=== PATIENT | female | born 1950 | race Caucasian/White ===

== ENCOUNTER → 2016-09-01 | Outpatient (CLI) | payer OTHER ==
[~2016-09-01] MED LIST: IOPAMIDOL (ISOVUE-300) 100 ML BTL ONE
[2016-09-01 15:33] LABS: CREATININE 0.8 mg/dL (0.6-1.0); GLOMERULAR FILTRATION RATE > 60
== END ==
LOC: FIMAGING 14:28
PROVIDERS: ATTEND Internal Medicine
DX: N20.2 Calculus of kidney with calculus of ureter (principal); Z93.2 Ileostomy status
CPT/HCPCS: 74177; Q9967

== ENCOUNTER → 2016-09-09 | Outpatient (CLI) | payer OTHER | LOC: FIMAGING 16:47 | PROVIDERS: ATTEND Specialist | DX: N28.9 Disorder of kidney and ureter, unspecified (principal) ==

== ENCOUNTER → 2017-06-08 | Outpatient (CLI) | payer OTHER | LOC: BMCIMAGING 14:01 | PROVIDERS: ATTEND Internal Medicine | DX: Z12.31 Encounter for screening mammogram for malignant neoplasm of breast (principal); Z13.820 Encounter for screening for osteoporosis; M85.89 Other specified disorders of bone density and structure, multiple sites; E07.9 Disorder of thyroid, unspecified; Z79.899 Other long term (current) drug therapy; Z78.0 Asymptomatic menopausal state; Z80.3 Family history of malignant neoplasm of breast ==

== ENCOUNTER → 2018-06-09 | Outpatient (CLI) | payer OTHER | LOC: BMCIMAGING 12:01 | PROVIDERS: ATTEND Internal Medicine | DX: Z12.31 Encounter for screening mammogram for malignant neoplasm of breast (principal); Z80.3 Family history of malignant neoplasm of breast ==

== ENCOUNTER → 2018-06-30 | Outpatient (CLI) | payer OTHER | LOC: BMCIMAGING 10:37 | PROVIDERS: ATTEND Internal Medicine | DX: R92.8 Other abnormal and inconclusive findings on diagnostic imaging of breast (principal) ==

== ENCOUNTER 2018-07-20 14:21 | Observation (INO) | payer OTHER ==
--- NOTE | 2018-07-20 14:55 | EDPHY ---
H & P Stated Complaint: irregular HR Time Seen by Provider: 07/20/18 14:55 HPI/ROS: CHIEF COMPLAINT: Tachycardia HISTORY OF PRESENT ILLNESS: The patient presents the ED with complaints of tachycardia for the past several days. The patient does have a history of paroxysmal atrial fibrillation. She takes 120 mg of diltiazem twice a day. The patient is also on Xarelto. She reported that she did eat and drink earlier today. The patient denies any chest pain or shortness of breath. The patient does report some anxiety secondary to her recent blindness. The patient has remote history of a gastric perforation leading to sepsis and intra- abdominal surgery. The patient was seen by her primary care provider yesterday noted to be in atrial fibrillation. She tempted to see her regular certified nursing assistant Dr. Yousif today but was unable to be seen in the office. REVIEW OF SYSTEMS: A comprehensive 10 point review of systems is otherwise negative aside from elements mentioned in the history of present illness. Source: Patient Exam Limitations: No limitations - Personal History Current Tetanus/Diphtheria Vaccine: Yes Current Tetanus Diphtheria and Acellular Pertussis (TDAP): Yes - Medical/Surgical History Hx Asthma: No Hx Chronic Respiratory Disease: No Hx Diabetes: No Hx Cardiac Disease: Yes Hx Renal Disease: No Hx Cirrhosis: No Hx Alcoholism: No Hx HIV/AIDS: No Hx Splenectomy or Spleen Trauma: No Other PMH: A-fib. perforated bowel surgery. parathyroid surgery. eye surgery , cornea transplant. 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 on lovenox - Social History Smoking Status: Never smoked - Physical Exam Exam: General Appearance: Alert, no distress Eyes: Pupils equal and round no pallor or injection ENT, Mouth: Mucous membranes moist Respiratory: There are no retractions, lungs are clear to auscultation Cardiovascular: Tachycardic, irregular Gastrointestinal: Abdomen is soft and nontender, no masses, bowel sounds normal Neurological: A&O, normal motor function, normal sensory exam, normal cranial nerves Skin: Warm and dry, no rashes Musculoskeletal: Neck is supple nontender Extremities: symmetrical, full range of motion Constitutional: Initial Vital Signs Temperature (C) 37.1 C 07/20/18 14:38 Heart Rate 67 07/20/18 14:38 Respiratory Rate 16 07/20/18 14:38 Blood Pressure 154/116 H 07/20/18 14:38 O2 Sat (%) 93 04/09/19 14:38 O2 Delivery Mode Room Air Allergies/Adverse Reactions: metoprolol succinate [From Toprol XL] Allergy (Verified 07/20/18 14:34) Home Medications: Medication Instructions Recorded Diltiazem HCl [Cartia Xt] 120 mg PO DAILY 01/17/15 Loperamide HCl [Loperamide] 2 mg PO PRN PRN 01/17/15 Ondansetron Odt [Zofran Odt 4 mg 4 mg PO DAILY PRN 01/17/15 (*)] Tobramycin/Dexamethasone [Tobradex 1 applic LEFTEYE BID 01/17/15 Eye Ointment] Tobramycin/Dexamethasone [Tobradex 1 applic RTEYE DAILY 01/17/15 Eye Ointment] Levothyroxine [Synthroid 88 mcg 88 mcg PO DAILY06 #30 tab 01/27/15 (*)] Benadryl 07/20/18 FLUoxetine HCL 07/20/18 Lorazepam 07/20/18 Melatonin 07/20/18 Miralax 17 gm (*) 07/20/18 Xarelto 07/20/18 Medical Decision Making - Diagnostics EKG Interpretation: EKG: Complete interpretation has been separately recorded in the [facility] archive. Summary impression: Atrial flutter, rate 143, nonspecific ST T wave changes noted ED Course/Re-evaluation: Patient presents the ED with atrial flutter with rapid ventricular response. The patient has a history of this. She had an IV established he was placed on a equipment monitor phototypesetting. The patient received IV diltiazem. She did have improvement of her underlying atrial rate and went to flutter with 3:1 conduction. The patient will be admitted to the hospital in a setting of her ongoing symptoms. She is having fatigue and mild dyspnea. Consultation was made with Dr. Jolley from the hospitalist service who will admit the patient. I have paged the cardiology service at 4:00 p.m.. Differential Diagnosis: Differential diagnosis considered includes atrial fibrillation, atrial flutter, SVT, myocardial infarction - Data Points Laboratory Results: Laboratory Results 07/20/18 15:05 07/20/18 15:05 07/20/18 07/20/18 07/20/18 15:05 15: 15: WBC 8.39 10^3/uL 10^3/uL (3.80-9.50) RBC 5.32 10^6/uL 10^6/uL (4.18-5.33) Hgb 16.6 g/dL H g/dL (12.6-16.3) Hct 48.5 % H % (38.0-47.0) MCV 91.2 fL fL (81.5-99.8) MCH 31.2 pg pg (27.9-34.1) MCHC 34.2 g/dL g/dL (32.4-36.7) RDW 14.3 % % (11.5-15.2) Plt Count 207 10^3/uL 10^3/uL (150-400) MPV 9.8 fL fL (8.7-11.7) Neut % (Auto) 72.8 % % (39.3-74.2) Lymph % (Auto) 18.8 % % (15.0-45.0) [place] % (Auto) 6.9 % % (4.5-13.0) Eos % (Auto) 0.8 % % (0.6-7.6) Baso % (Auto) 0.5 % % (0.3-1.7) Nucleat RBC Rel Count 0.0 % % (0.0-0.2) Absolute Neuts (auto) 6.10 10^3/uL 10^3/uL (1.70-6.50) Absolute Lymphs (auto) 1.58 10^3/uL 10^3/uL (1.00-3.00) Absolute Monos (auto) 0.58 10^3/uL 10^3/uL (0.30-0.80) Absolute Eos (auto) 0.07 10^3/uL 10^3/uL (0.03-0.40) Absolute Basos (auto) 0.04 10^3/uL 10^3/uL (0.02-0.10) Absolute Nucleated RBC 0.00 10^3/uL 10^3/uL (0-0.01) Immature Gran % 0.2 % % (0.0-1.1) Immature Gran # 0.02 10^3/uL 10^3/uL (0.00-0.10) PT 17.0 SEC H SEC (12.0-15.0) INR 1.45 H (0.83-1.16) APTT 32.6 SEC SEC (23.0-38.0) Sodium 141 mEq/L mEq/L (135-145) Potassium 4.5 mEq/L mEq/L (3.5-5.2) Chloride 109 mEq/L mEq/L (97-110) Carbon Dioxide 21 mEq/l L mEq/l (22-31) Anion Gap 11 mEq/L mEq/L (6-14) BUN 17 mg/dL mg/dL (7-23) Creatinine 0.7 mg/dL mg/dL (0.6-1.0) Estimated GFR > 60 Glucose 98 mg/dL mg/dL (70-100) Calcium 9.5 mg/dL mg/dL (8.5-10.4) Medications Given: Discontinued Medications Diltiazem HCl (Cardizem 25 Mg/5 Ml Vial) 20 mg IVP EDNOW ONE Stop: 07/20/18 15:04 Last Admin: 07/20/18 15:18 Dose: 20 mg Sodium Chloride (Ns) 1,000 mls @ 0 mls/hr IV EDNOW ONE; Wide Open PRN Reason: Protocol Stop: 07/20/18 15:04 Last Admin: 07/20/18 15:17 Dose: 1,000 mls Departure - Departure Disposition: [facility] Inpatient Acute Clinical Impression: Atrial flutter Condition: Fair
[2018-07-20] MEDS ORDERED: NS 1,000 ML IV ONE (15:03)
[2018-07-20] MEDS ORDERED: DILTIAZEM 25 MG/5 ML VIAL IVP ONE (15:03)
[2018-07-20 15:27] LABS: PLATELET COUNT 207 10^3/uL (150-400)
[2018-07-20 15:36] LABS: INR 1.45 (0.83-1.16)
[2018-07-20] MEDS ORDERED: ONDANSETRON 4 MG/2 ML VIAL IVP PRN (15:39)
[2018-07-20] MEDS ORDERED: ONDANSETRON DISINTEGRATING 4 MG TAB PO PRN (15:39)
[2018-07-20] MEDS ORDERED: ACETAMINOPHEN 325 MG TAB PO PRN (15:39)
--- NOTE | 2018-07-20 15:44 | CPEKG ---
Test Reason : OPEN Blood Pressure : / mmHG Vent. Rate : 143 BPM Atrial Rate : 141 BPM P-R Int : 152 ms QRS Dur : 101 ms QT Int : 378 ms P-R-T Axes : -24 -24 093 degrees QTc Int : 583 ms Sinus tachycardia Inferior infarct, acute (RCA) Prolonged QT interval Probable RV involvement, suggest recording right precordial leads Confirmed by Norman Garcia ([id number]) on 07/20/2018 3:44:03 PM Referred By: Norman Garcia Confirmed By:Norman Garcia
--- NOTE | 2018-07-20 16:02 | PDGENHP ---
History and Physical - Chief Complaint Tachycardia - History of Present Illness Isabel Rivas is a 67 yo F with a PMHx of Paroxysmal A Fib on Xarelto and Diltiazem, blindness, hx of gastric perforation who presents to [facility] for tachycardia. She reports that she has noted a rapid heart rhythm for the past several days. She was seen by her PCP her performed an EKG which showed rapid heart rate per patient. She denies any chest pain, SOB, f/c, d/c, dysuria, edema. History Information - Allergies/Home Medication List Allergies/Adverse Reactions: metoprolol succinate [From Toprol XL] Allergy (Intermediate, Verified 07/20/18 15:56) Home Medications: Diltiazem HCl [Cartia Xt] 120 mg PO BID 01/17/15 [Last Taken 07/20/18 09:00] Ondansetron Odt [Zofran Odt 4 mg (*)] 4 mg PO DAILY PRN 01/17/15 [Last Taken Unknown] Tobramycin/Dexamethasone [Tobradex Eye Ointment] 1 applic EACHEYE HS 01/17/15 [ Last Taken 07/19/18 21:00] Acetaminophen [Tylenol ES 500 mg (*)] 500 - 1,000 mg PO BID 07/20/18 [Last Taken 07/20/18 09:00] Bifidobacterium Infantis [Align] 4 mg PO DAILY 07/20/18 [Last Taken 07/19/18 09: 00] Clobetasol 0.05% [Temovate Cream] 1 applic TD DAILY 07/20/18 [Last Taken 09:00] Estrogens,Conjugated [Premarin Vaginal (*)] 1 dakotah VAG SUWE 07/20/18 [Last Taken 07/18/18] FLUoxetine HCL [Fluoxetine HCl] 40 mg PO DAILY 07/20/18 [Last Taken 07/20/18 09: 00] Herbals/Supplements -Info Only 1 ea PO DAILY 07/20/18 [Last Taken 07/16/18] LORazepam [Ativan (*)] 0.5 mg PO DAILY PRN 07/20/18 [Last Taken 07/20/18 09:00] Melatonin [Melatonin 3 MG (*)] 3 mg PO HS 07/20/18 [Last Taken 07/19/18 21:00] Polyethylene Glycol 3350 [Miralax 17 gm (*)] 17 gm PO DAILY 07/20/18 [Last Taken 07/19/18 09:00] Rivaroxaban [Xarelto] 20 mg PO HS 07/20/18 [Last Taken 07/19/18 21:00] diphenhydrAMINE [Benadryl 25 MG (*)] 25 mg PO TID PRN 07/20/18 [Last Taken Unknown] prednisoLONE ACET 1% [Pred Forte 1% (*)] 1 drop RTEYE HS 07/20/18 [Last Taken 21:00] I have personally reviewed and updated: family history, medical history, social history, surgical history - Past Medical History atrial fibrillation Additional medical history: 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 - Surgical History Reports: colectomy Additional surgical history: eye surgery - Family History Positive for: non-pertinent - Social History Smoking Status: Never smoked Review of Systems Review of Systems: ROS: 10pt was reviewed & negative except for what was stated in HPI & below Physical Exam Physical Exam: Temp Pulse Resp BP Pulse Ox 37.1 C 79 16 124/82 H 96 07/20/18 14:38 07/20/18 15:25 07/20/18 15:25 07/20/18 15:25 07/20/18 15:25 Constitutional: no apparent distress Eyes: No PERRL Ears, Nose, Mouth, Throat: moist mucous membranes Cardiovascular: irregularly irregular, No no murmur, rub, or gallop, No JVD, No edema Respiratory: no respiratory distress Gastrointestinal: soft, non-tender abdomen Skin: warm Musculoskeletal: full muscle strength Neurologic: AAOx3 Psychiatric: interacting appropriately Lab Data & Imaging Review 07/20/18 15:05 07/20/18 15:05 WBC 8.39 10^3/uL (3.80-9.50) 07/20/18 15:05 RBC 5.32 10^6/uL (4.18-5.33) 07/20/18 15:05 Hgb 16.6 g/dL (12.6-16.3) H 07/20/18 15:05 Hct 48.5 % (38.0-47.0) H 07/20/18 15:05 MCV 91.2 fL (81.5-99.8) 07/20/18 15:05 MCH 31.2 pg (27.9-34.1) 07/20/18 15:05 MCHC 34.2 g/dL (32.4-36.7) 07/20/18 15:05 RDW 14.3 % (11.5-15.2) 07/20/18 15:05 Plt Count 207 10^3/uL (150-400) 07/20/18 15:05 MPV 9.8 fL (8.7-11.7) 07/20/18 15:05 Neut % (Auto) 72.8 % (39.3-74.2) 07/20/18 15:05 Lymph % (Auto) 18.8 % (15.0-45.0) 07/20/18 15:05 [place] % (Auto) 6.9 % (4.5-13.0) 07/20/18 15:05 Eos % (Auto) 0.8 % (0.6-7.6) 07/20/18 15:05 Baso % (Auto) 0.5 % (0.3-1.7) 07/20/18 15:05 Nucleat RBC Rel Count 0.0 % (0.0-0.2) 07/20/18 15:05 Absolute Neuts (auto) 6.10 10^3/uL (1.70-6.50) 07/20/18 15:05 Absolute Lymphs (auto) 1.58 10^3/uL (1.00-3.00) 07/20/18 15:05 Absolute Monos (auto) 0.58 10^3/uL (0.30-0.80) 07/20/18 15:05 Absolute Eos (auto) 0.07 10^3/uL (0.03-0.40) 07/20/18 15:05 Absolute Basos (auto) 0.04 10^3/uL (0.02-0.10) 07/20/18 15:05 Absolute Nucleated RBC 0.00 10^3/uL (0-0.01) 07/20/18 15:05 Immature Gran % 0.2 % (0.0-1.1) 07/20/18 15:05 Immature Gran # 0.02 10^3/uL (0.00-0.10) 07/20/18 15:05 PT 17.0 SEC (12.0-15.0) H 07/20/18 15:05 INR 1.45 (0.83-1.16) H 07/20/18 15:05 APTT 32.6 SEC (23.0-38.0) 07/20/18 15:05 Sodium 141 mEq/L (135-145) 07/20/18 15:05 Potassium 4.5 mEq/L (3.5-5.2) 07/20/18 15:05 Chloride 109 mEq/L (97-110) 07/20/18 15:05 Carbon Dioxide 21 mEq/l (22-31) L 07/20/18 15:05 Anion Gap 11 mEq/L (6-14) 07/20/18 15:05 BUN 17 mg/dL (7-23) 07/20/18 15:05 Creatinine 0.7 mg/dL (0.6-1.0) 07/20/18 15:05 Estimated GFR > 60 07/20/18 15:05 Glucose 98 mg/dL (70-100) 07/20/18 15:05 Calcium 9.5 mg/dL (8.5-10.4) 07/20/18 15:05 POC Troponin I 0.03 ng/mL (0.00-0.08) 07/20/18 15:18 Assessment & Plan Assessment: Atrial flutter with rapid ventricular rate - Complaining of tachycardia recently, s/p EKG in PCP yesterday - HR 140's on admission, EKG showing A Flutter - Has a hx of Paroxsymal A Fib on Xarelto and Diltiazem - S/p 20 mg IVP Diltiazem in ED with improvement in HR <110, will start diltiazem gtt for continued HR control - Cardiology consulted in ED, discussed with Estrada Kunz, he will arrange for DCCV in the AM - NPO after midnight - Holding home Diltiazem 120 gm PO BID and continue home Xarelto - Monitor on telemetry Hypothyroidism - Continue home synthroid - Will check TSH Anxiety - Continue home Fluoxetine, Ativan Blindness - Continue home eye drops FEN: IVF, NPO pending procedure DVT Ppx: Home Xarelto Code: FULL Dispo: Admit to Observation
[2018-07-20] MEDS ORDERED: DILTIAZEM 25 MG/5 ML VIAL IVP PRN (16:11)
[2018-07-20] MEDS ORDERED: LORazepam 0.5 MG TAB PO PRN (16:13)
[2018-07-20] MEDS ORDERED: DILTIAZEM HCL/D5W 125 ML IV SCH (17:00)
--- NOTE | 2018-07-20 17:52 | GCON ---
[f rep st] CONSULTATION REFERRING PHYSICIAN: Norman Garcia MD SUPERVISING TRANSCRIPTION TYPIST: Dr. Robb Calvillo. INDICATION FOR CARDIOLOGY CONSULTATION: Atrial flutter with rapid ventricular response. HISTORY OF PRESENT ILLNESS: The patient is a pleasant 67-year-old female who is known to our practice. She is followed by Dr. Devan Walker. She has significant past history that includes paroxysmal atrial fibrillation, hypertension, sleep apnea, legally blind. The patient reporting she had been in her normal state of health until approximately 1 month ago, in which she had noted while walking, she becomes significantly short of breath. Denying of any significant chest pain, but does report occasional back pain with these symptoms. She usually states that this dissipates within a few minutes of resting, but finds, overall, that she has been mostly fatigued. She was seen by her PCP today and found that she was in atrial fibrillation. She was sent to the emergency department for further evaluation. Upon arrival, electrocardiogram was done, noting A-flutter with RVR, ventricular rate up to 143 BPM. She was noted to have mild Q-waves in the inferior leads. A troponin level was drawn, which was noted to be at 0.03. She was initially treated with IV diltiazem, which noted a significant improvement in rate, dropping her down to 90 beats per minute after the IV bolus. She reports significant improvement in symptoms. At the time of my examination, she reports no shortness of breath and denies of any chest pain or pressure. She reports no orthopnea, PND, edema , rapid weight gain, lightheadedness, near-syncope, or syncopal events. She reports no symptoms suggestive of TIA or CVA. She reports no recent fevers, chills, or night sweats. She denies of any bleeding issues, she is currently on full anticoagulation on Xarelto. PAST MEDICAL HISTORY: Includes anxiety, depression, fibromyalgia, hypertension , hypothyroidism, QUOC, paroxysmal atrial fibrillation and history of autoimmune disease, which caused blindness. PAST SURGICAL HISTORY: Includes cholecystectomy, corneal transplant, tonsillectomy. 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 Ovarian cyst removal. 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 She is . She has 2 kids and multiple grandchildren who are all alive and well. She denies of any smoking history. She occasionally uses alcohol. Denies any illicit drug use. ALLERGIES: The patient states allergies to metoprolol succinate. HOME MEDICATIONS: Include lorazepam 0.5 mg p.o. daily p.r.n., herbs and supplements, Premarin vaginal, 1 application vaginal Thursday and Thursday; MiraLAX 17 g p.o. daily p.r.n.; Align 4 mg p.o. daily; Tylenol 500 to 1000 mg p.o. twice daily; Benadryl 25 mg p.o. three times daily p.r.n.; melatonin 3 mg p.o. h.s.; temovate cream application daily; prednisone acetate 1% 1 drop to the right eye h.s.; Zofran 4 mg p.o. daily p.r.n.; fluoxetine 40 mg p.o. daily; Tobrex eye ointment 1 application each eye h.s.; Xarelto 20 mg p.o. h.s.; Synthroid 88 mcg p.o. daily; diltiazem 120 mg p.o. b.i.d. REVIEW OF SYSTEMS: A 10-point review of systems done on this patient, all negative except as mentioned above. PHYSICAL EXAMINATION: GENERAL APPEARANCE: Morbidly obese, female. She is alert and orientated to person, place, time and situation. She currently appears to be in no acute distress. VITAL SIGNS: Current vital signs are a blood pressure of 129/98, heart rate of 120 on monitor, atrial flutter; respirations 20, saturating 94% on room air; temperature 36.9 degrees Celsius. HEENT: Head is normocephalic. Lips and tongue are pink and moist with no signs of cyanosis. NECK: Trachea is midline. +2 carotid pulses bilaterally. No auscultated bruits. No jugular vein distention. RESPIRATORY: Lungs are clear to auscultation. No rhonchi, rales, or wheezes. No accessory muscle use. No intercostal muscle retraction noted. CARDIAC: Tachy rate, irregular rhythm, S1, S2. No S3, S4, gallops, rubs, or murmurs noted. ABDOMEN: Soft, nontender. Bowel sounds x4 quadrants. Colostomy left upper lower quadrant. SKIN: [place], warm and dry. No cyanosis, no clubbing, no peripheral edema. VASCULAR: +2 carotids bilaterally, +2 radials bilaterally, + 1 dorsal pedal and posterior tibial pulses bilaterally. LABORATORY STUDIES: Laboratory studies drawn on admission showing WBC of 8.39, hemoglobin of 16.6, hematocrit of 48.5, platelet count of 207. INR of 1.45. Sodium 141, potassium 4.5, chloride 109, CO2 21, BUN 17, creatinine 0.7, glucose 98, calcium 9.5, troponin of 0.03. TSH is pending. STUDIES: Electrocardiogram, as mentioned above, noted in our office notes when patient was priorly seen at [facility]. She was noted in November of 2013, to undergo Lexiscan MPI study. There was evidence of a small area ischemia in the apical anterior septal wall and evidence of trans ischemic dilation. These findings were similar to previous EKGs done in 2012. She was asymptomatic and has been treated with medical management. ASSESSMENT AND PLAN: 1. Atrial flutter with rapid ventricular response: Patient reporting ongoing fatigue symptoms for the last month with shortness of breath with exertion. Electrocardiogram today shows A-flutter with rapid ventricular response with heart rates up to 140 initially, improved with IV push diltiazem. Patient reporting improvement in symptoms. The patient also with known history of paroxysmal atrial fibrillation. She is fully anticoagulated on Xarelto. She has been noted to be better controlled after 20 mg IV push of diltiazem in the ER, but heart rates are starting to increase again. At this time, I have ordered her to start an IV diltiazem drip. Since she states she has been compliant with her anticoagulation for the last month with no missing doses, we will plan on doing an electrical cardioversion on her tomorrow morning if she does not convert tonight. Risks and benefits of this procedure were explained to her. She understands. We will make her n.p.o. after midnight. She will be monitored on PCU for overnight observation. 2. Hypertension: Blood pressure mildly elevated initially, but improves with diltiazem drip. We will monitor blood pressure and re-evaluate as needed. 3. Hypothyroidism: The patient with noted history of hypothyroid, currently on Synthroid. TSH is currently pending. The patient has been resumed on home Synthroid. 4. Anxiety: The patient has been resumed on her home doses of Prozac and Ativan. 5. Blindness: Chronic condition. Thank you for this consultation. We will be glad to follow along with you. /[id number]/MODL MTDD
[2018-07-20] MEDS ORDERED: MELATONIN 3 MG TAB PO SCH (21:00)
[2018-07-20] MEDS ORDERED: TOBRAMYCIN/DEXAMETH 3.5 GM OPHT.OINT EACHEYE SCH (21:00)
[2018-07-20] MEDS ORDERED: DILTIAZEM CD 120 MG CAP PO SCH (21:00)
[2018-07-20] MEDS ORDERED: prednisoLONE ACET 1% 5 ML OPHT.BTL RTEYE SCH (21:00)
[2018-07-20] MEDS ORDERED: RIVAROXABAN 20 MG TAB PO SCH (21:00)
[2018-07-21] MEDS ORDERED: LEVOTHYROXINE 88 MCG TAB PO SCH (06:00)
[2018-07-21] MEDS ORDERED: ATROPINE SULFATE 1 MG/10 ML SYR IVP ONE (06:00)
[2018-07-21] MEDS ORDERED: NS 1,000 ML IV ONE (06:00)
--- NOTE | 2018-07-21 07:22 | PDHPUP ---
History & Physical Update H&P update statement: This history and physical update is based on an assessment of the patient which was completed after admission or registration (within 24 hours), but prior to the surgery/procedure. H&P update: H&P reviewed & patient examined, no change in patient's condition since H&P completed
[2018-07-21] MEDS ORDERED: PROPOFOL 200 MG/20 ML VIAL ONE (07:25)
[2018-07-21] MEDS ORDERED: SUCCINYLCHOLINE CHLORIDE 200 MG/10 ML SYR IVP ONE (07:26)
[2018-07-21] MEDS ORDERED: LIDOCAINE 2% 100 MG/5 ML SYR ONE (07:26)
--- NOTE | 2018-07-21 07:43 | PDANEPAE ---
ANE History of Present Illness a-flutter s/f DC CV ANE Past Medical History - Cardiovascular History Hx Hypertension: Yes Hx Arrhythmias: Yes - Pulmonary History Hx Oxygen in Use at Home: No Hx Sleep Apnea: Yes Pulmonary History Comment: CPAP - Endocrine History Hx Diabetes: No Hypothyroid: No - GI History Gastrointestinal History Comment: obesity - Other Health History Other Health History: blindness ? secondary to autoimmune process - Chronic Pain History Chronic Pain: Yes (fibromyalgia, polymyalgia) ANE Review of Systems Review of Systems: - Exercise capacity Exercise capacity: <4 METS ANE Patient History - Allergies Allergies/Adverse Reactions: metoprolol succinate [From Toprol XL] Allergy (Intermediate, Verified 07/20/18 15:56) - Home Medications Home medications: home medication list seen and reviewed Home Medications: Diltiazem HCl [Cartia Xt] 120 mg PO BID 01/17/15 [Last Taken 07/20/18 09:00] Ondansetron Odt [Zofran Odt 4 mg (*)] 4 mg PO DAILY PRN 01/17/15 [Last Taken Unknown] Tobramycin/Dexamethasone [Tobradex Eye Ointment] 1 applic EACHEYE HS 01/17/15 [ Last Taken 07/19/18 21:00] Acetaminophen [Tylenol ES 500 mg (*)] 500 - 1,000 mg PO BID 07/20/18 [Last Taken 07/20/18 09:00] Bifidobacterium Infantis [Align] 4 mg PO DAILY 07/20/18 [Last Taken 07/19/18 09: 00] Clobetasol 0.05% [Temovate Cream] 1 applic TD DAILY 07/20/18 [Last Taken 09:00] Estrogens,Conjugated [Premarin Vaginal (*)] 1 d[place] VAG SUWE 07/20/18 [Last Taken 07/18/18] FLUoxetine HCL [Fluoxetine HCl] 40 mg PO DAILY 07/20/18 [Last Taken 07/20/18 09: 00] Herbals/Supplements -Info Only 1 ea PO DAILY 07/20/18 [Last Taken 07/16/18] LORazepam [Ativan (*)] 0.5 mg PO DAILY PRN 07/20/18 [Last Taken 07/20/18 09:00] Melatonin [Melatonin 3 MG (*)] 3 mg PO HS 07/20/18 [Last Taken 07/19/18 21:00] Polyethylene Glycol 3350 [Miralax 17 gm (*)] 17 gm PO DAILY 07/20/18 [Last Taken 07/19/18 09:00] Rivaroxaban [Xarelto] 20 mg PO HS 07/20/18 [Last Taken 07/19/18 21:00] diphenhydrAMINE [Benadryl 25 MG (*)] 25 mg PO TID PRN 07/20/18 [Last Taken Unknown] prednisoLONE ACET 1% [Pred Forte 1% (*)] 1 drop RTEYE HS 07/20/18 [Last Taken 21:00] - NPO status NPO Status: no food or drink >8 hours - Anes Hx Anes Hx: no prior problems - Smoking Hx Smoking Status: Never smoked - Alcohol Use Alcohol Use: Rarely - Family Anes Hx Family Anes Hx: none ANE Labs/Vital Signs - Labs Result Diagrams: 07/20/18 15:05 07/21/18 05:30 - Vital Signs Blood Pressure: 134/85 Heart Rate: 68 Respiratory Rate: 13 O2 Sat (%): 97 Height: 162.56 cm Weight: 129.4 kg ANE Physical Exam - Airway Neck exam: FROM Mallampati Score: Class 2 Mouth exam: normal dental/mouth exam - Pulmonary Pulmonary: no respiratory distress - Cardiovascular Cardiovascular: regular rate and rhythym (a-flutter) - ASA Status ASA Status: III ANE Anesthesia Plan Anesthesia Plan: GA with mask Total IV Anesthesia: Yes Urgent/Emergent Case: Jie shook completed preop but documented later for safe timely pt care
--- NOTE | 2018-07-21 07:44 | POSTANESTH ---
Post Anesthetic Evaluation Cardiovascular Status: Normal, Stable, Similar to Pre-Op Cond Respiratory Status: Normal, Stable, Similar to Pre-op Cond., Tx Decrease in SpO2 Level of Consciousness/Mental Status: Can Participate in Eval Pain Control: Adequate, Prn Tx Ordered Nausea/Vomiting Control: Adequate, Prn Tx Ordered Complications Possibly Related to Anesthesia: None Noted
[2018-07-21 08:31] VITALS: BP 133/74
[2018-07-21] MEDS ORDERED: POLYETHYLENE GLYCOL 3350 17 GM PKT PO SCH (09:00)
[2018-07-21] MEDS ORDERED: DILTIAZEM CD 180 MG CAP PO SCH (09:00)
[2018-07-21] MEDS ORDERED: BIFIDOBACTERIUM INFANTIS 4 MG PO SCH (09:00)
[2018-07-21] MEDS ORDERED: FLUoxetine 20 MG CAP PO SCH (09:00)
[2018-07-21] MEDS ORDERED: CLOBETASOL 0.05% 15 GM CRTUBE TP SCH (09:00)
--- NOTE | 2018-07-21 09:11 | CPEKG ---
Test Reason : OPEN Blood Pressure : / mmHG Vent. Rate : 069 BPM Atrial Rate : 069 BPM P-R Int : 187 ms QRS Dur : 097 ms QT Int : 410 ms P-R-T Axes : 008 -11 006 degrees QTc Int : 440 ms Sinus rhythm Inferior infarct, old Confirmed by Luis Bunch ([id number]) on 07/21/2018 9:10:32 AM Referred By: Gerry Jolley Confirmed By:Luis Bunch
--- NOTE | 2018-07-21 09:28 | PDDCSUM ---
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 Robb Calvillo of Cardiology PROCEDURES: Electric cardioversion Transthoracic echocardiogram HOSPITAL COURSE SUMMARY: This patient with known atrial fibrillation flutter comes in with an episode of rapid atrial flutter symptomatic with dyspnea and exertional fatigue. There is no evidence of ischemia or heart failure. She was on diltiazem 120 mg and Xarelto at home. She was observed overnight on heart monitoring and did not convert to sinus rhythm. She therefore went to the procedure area where she underwent electrical cardioversion which was successful with 1 shock. She remains in sinus rhythm now and feels notably better. She has stable vital signs, is eating, no shortness of breath, no other symptoms. She had an echocardiogram which does not show any concerning valvular or LV dysfunction abnormalities. At this point patient is stable for discharge to home. She will continue on the higher dose of diltiazem 180 mg and continue her Xarelto. She will follow up with Dr. Walker in clinic next week. PENDING TEST RESULTS: None MEDICATION CHANGES: Diltiazem is increased from 120 to 180 mg daily FOLLOW-UP PLAN: With Dr. Smallwood in Cardiology Clinic week Greater than 35 minutes bedside and care coordination time today
--- NOTE | 2018-07-21 10:19 | ECHO ---
[email or web address] [address] Main: [phone] Echocardiography Examination Transthoracic Name: NILESH VILLASENOR MR#: [id number] Study Date: 07/21/2018 Study Time: 07:51 AM Date of : 1950 Age: 67 year(s) Height: 163 cm (64.17 in.) Weight: 129 kg (284.39 lb.) BSA: 2.28 m2 Gender: Female Examination: Echo Contrast: Image Quality: Rhythm: Normal sinus rhythm Heart Rate: 68 bpm BP: 132 mmHg/70 mmHg Indication: Eval LV Fx Procedure Staff Referring Physician: Connie Scratcher: Booker Jurado RDCS Reading Physician: Robb Calvillo MD Requesting Provider: Ordering Physician: Gerry Jolley Indication: Eval LV Fx Measurements Chambers AV/MV Label Value Normal Value Label Value Normal Value LVOT Vmax 0.94 m/s (0.7m/s - 1.1m/s) AV PGmax 5 mmHg LVOTd 2 cm (1.8cm - 2cm) AV PGmean 3 mmHg LVOT VTI 22.3 cm (18cm - 22cm) AV Vmax 1.15 m/s LVDd, 2D 5.1 cm (3.9cm - 5.3cm) DEEPTI (Vmax) 2.6 cm2 LVDs, 2D 3.4 cm (2.1cm - 4cm) DEEPTI (VTI) 3 cm2 IVSd, 2D 1.1 cm (0.6cm - 1.1cm) MV E Vmax 0.78 m/s LVPWd, 2D 1.1 cm MV A Vmax 0.36 m/s LVEF, 2D 63 % (54% - 74%) MV E/A 2.17 LVOT PGmean 2 mmHg MV E/E' lateral 8.6 LVOT Vmean 0.65 m/s MV E/E' septal 9.5 (0.45 - 1.25) RVDd, 2D 2 cm (1.9cm - 3.8cm) MV E' septal 0.08 m/s LA Volume, BP 68 ml (22ml - 52ml) MV E' lateral 0.09 m/s LADs, 2D 3.7 cm (2.7cm - 3.8cm) MV E/E' mean 9.18 LAESV index, BP 29.8 ml/m2 MV E' mean 0.08 m/s RA Area 16 cm2 TV/PV Additional Vessels Label Value Normal Value Label Value Normal Value RA Pressure 5 mmHg AoAsc 2.2 cm RVSP 35 mmHg AoRoot, MM 3.5 cm (2.2cm - 3.7cm) TR Pmax 30 mmHg Patient: NILESH VILLASENOR Study Date: 07/21/2018 Page 1 of 2 07:51 AM TR Vmax 2.76 m/s PV PGmax 3 mmHg PV Vmax, Caliper 0.81 m/s (0.6m/s - 0.9m/s) Conclusions Normal left ventricular size and function. LVEF estimated at 60-65%. Normal left ventricular free wall thickness and wall motion. Normal diastolic function. Normal appearing valvular structures. Mild tricuspid regurgitation. Normal estimated RVSP at 35 mmHg. Findings Left Ventricle: Left ventricle is normal in size. Normal global systolic left ventricular function. EF range is estimated at 60 % - 65 %. Left ventricle wall thickness is normal. Left ventricular diastolic function parameters are normal. Right Ventricle: Normal size right ventricle. Right ventricular systolic function is normal. Left Atrium: The left atrium is normal in size. Right Atrium: The right atrium is normal in size. Mitral Valve: Mitral valve appears structurally normal. No significant mitral regurgitation. No mitral valve stenosis. Aortic Valve: Aortic leaflets are normal in appearance and function. No aortic valve regurgitation. There is no aortic stenosis. Aortic leaflets exhibit no calcification. The aortic valve is trileaflet. Tricuspid Valve: Tricuspid valve leaflets are structurally normal. Mild tricuspid regurgitation. Right Ventricular systolic pressure is measured at 35 mmHg. Pulmonary artery pressure normal. Pulmonic Valve: Pulmonic leaflets are normal in appearance and function. No pulmonic valve regurgitation is evident. Aorta: The aorta is normal. The aortic root size in M-mode measures 3.5 cm. The ascending aorta measures 2.2 cm. Aorta Measurements AoRoot, MM is 3.5 cm. Pericardium: No pericardial effusion. Exam Details Procedure Ordered: Echo (No Signature Object) Patient: NILESH VILLASENOR Study Date: 07/21/2018 Page 2 of 2 07:51 AM [id number]
[2018-07-21] MEDS ORDERED: ESTROGENS,CONJUGATED 30 GM CRTUBE VG SCH (21:00)
--- NOTE | 2018-07-22 19:33 | CPEKG ---
Test Reason : OPEN Blood Pressure : / mmHG Vent. Rate : 076 BPM Atrial Rate : 075 BPM P-R Int : 173 ms QRS Dur : 096 ms QT Int : 392 ms P-R-T Axes : 042 -04 016 degrees QTc Int : 441 ms Sinus rhythm poor r wave progression Confirmed by Luis Bunch ([id number] on 07/22/2018 7:32:59 PM Referred By: Gerry Jolley Confirmed By:Luis Bunch
== END 2018-07-21 12:03 | disposition home or self-care (01) ==
LOC: INTOOBSV 15:17 → F2W 16:37
PROVIDERS: ADMIT Internal Medicine; ATTEND Internal Medicine
PROC: 5A2204Z Restoration of Cardiac Rhythm, Single (ICD-10-PCS; principal; 2018-07-20)
DX: I48.92 Unspecified atrial flutter (principal); I48.0 Paroxysmal atrial fibrillation; I10 Essential (primary) hypertension; E03.9 Hypothyroidism, unspecified; H54.8 Legal blindness, as defined in USA; G47.33 Obstructive sleep apnea (adult) (pediatric); F32.9 Major depressive disorder, single episode, unspecified; F41.9 Anxiety disorder, unspecified; Z79.01 Long term (current) use of anticoagulants; Z86.19 Personal history of other infectious and parasitic diseases
CPT/HCPCS: 92960; 93005; 93306; 96361; 96374; 96375; 97161; 99285; G0378; J2001; J2704; 84484-ER; J0330